=== PATIENT | female | born 1995 | race Caucasian/White ===

== ENCOUNTER 2020-01-30 20:17 | Emergency (ER) | payer OTHER, MEDICAID ==
[~2020-01-30] VITALS: Ht 170.2 cm; Wt 88.5 kg
[~2020-01-30 20:17] MED LIST: AMOXICILLIN 50500 MG PO; NOHOMEMEDICATIONS
[2020-01-30] MEDS ORDERED: ACYCLOVIR 400400 MG PO (20:27)
[2020-01-30 21:19] LABS: URINE BILIRUBIN NEGATIVE (Negative); URINE BLOOD NEGATIVE (Negative); URINE CLARITY CLEAR; URINE COLOR YELLOW; URINE GLUCOSE-RANDOM NEGATIVE (Negative); URINE KETONES NEGATIVE (Negative); URINE LEUKOCYTES-REFLEX NEGATIVE (Negative); URINE NITRITE-REFLEX NEGATIVE (Negative); URINE PROTEIN TRACE (Negative); URINE SPECIFIC GRAVITY >= 1.030 (1.005-1.030); URINE UROBILINOGEN 0.2 E.U./dl (0.2-1.0)
[2020-01-30 21:38] VITALS: BP 121/70
== END 2020-01-30 21:38 | disposition home or self-care (01) ==
LOC: M.ERS 20:17
PROVIDERS: Personal Emergency Response Attendant
DX: O26.893 Other specified pregnancy related conditions, third trimester (principal); O9A.213 Injury, poisoning and certain other consequences of external causes complicating pregnancy, third trimester; M54.6 Pain in thoracic spine; Z3A.37 37 weeks gestation of pregnancy; Z79.899 Other long term (current) drug therapy; W10.9XXA Fall (on) (from) unspecified stairs and steps, initial encounter; Y93.89 Activity, other specified; Y92.89 Other specified places as the place of occurrence of the external cause; Y99.8 Other external cause status

== ENCOUNTER 2020-09-10 18:35 | Emergency (ER) | payer OTHER ==
[~2020-09-10] VITALS: Ht 170.2 cm; Wt 77.1 kg
[~2020-09-10 18:35] MED LIST changes: +ACYCLOVIR 400400 MG PO
[2020-09-10 20:04] VITALS: BP 108/64
== END 2020-09-10 20:04 | disposition home or self-care (01) ==
LOC: M.ERS 18:35
DX: S60.222A Contusion of left hand, initial encounter (principal); F17.210 Nicotine dependence, cigarettes, uncomplicated; Z91.040 Latex allergy status; W22.8XXA Striking against or struck by other objects, initial encounter; Y93.89 Activity, other specified; Y92.89 Other specified places as the place of occurrence of the external cause; Y99.8 Other external cause status